=== PATIENT | male | born 1970 | race Caucasian/White ===

== ENCOUNTER → 2016-10-21 | Outpatient (CLI) | payer OTHER | END | disposition home or self-care (01) | LOC: GMA 12:53 | PROVIDERS: ATTEND Nurse Practitioner Family | DX: E29.9 Testicular dysfunction, unspecified (principal) | CPT/HCPCS: 82306; 82607; 82652; 82670; 84402; 84403; 84436; 84443; 84481; 86376; G0103 ==

== ENCOUNTER → 2016-11-27 | Outpatient (CLI) | payer OTHER | END | disposition home or self-care (01) | LOC: GMA 10:37 | PROVIDERS: ATTEND Nurse Practitioner Family | DX: E34.9 Endocrine disorder, unspecified (principal) ==

== ENCOUNTER → 2020-04-11 | Outpatient (CLI) | payer BC | LOC: GMAM 09:57 | PROVIDERS: ATTEND Family Medicine | DX: R07.2 Precordial pain (principal) ==